=== PATIENT | male | born 1990 | race Caucasian/White ===

== ENCOUNTER 2024-02-02 17:51 | Emergency (ER) | payer OTHER, SELFPAY ==
[2024-02-02 18:31] VITALS: BP 134/89; PULSE 106; RESP 18; TEMP 37.3; O2SAT 95; BMI 39.9
--- NOTE | 2024-02-02 19:37 | ED_ITS ---
HPI - URI/Sore Throat General Chief Complaint: Upper Respiratory Symptoms Stated Complaint: Flu like symptoms Time Seen by Provider: 02/02/24 19:18 Source: patient Mode of arrival: ambulatory Limitations: no limitations History of Present Illness ED Provider: brian CEDEÑO Narrative: Patient's woke in the hospital complaining of running nose sore throat loss of taste sensation since yesterday with fever patient has been vaccinated against COVID no significant shortness of breath does have dry cough patient does have history of asthma Related Data Previous Rx's ?Medication ?Instructions ?Recorded benzonatate 200 mg capsule 200 mg PO TID PRN cough #30 caps 02/02/24 prednisone 20 mg tablet 40 mg (2 x 20 mg) PO DAILY #10 tabs 02/02/24 Allergies Allergy/AdvReac Type Severity Reaction Status Date / Time banana Allergy Itching Verified 02/02/24 18:33 [email or web address] Allergy Itching Verified 02/02/24 18:33 Review of Systems Review of Systems: Yes all other systems are reviewed and are negative [facility] Social History Social History Smoked in Last 30 Days: No Use of substances other than those prescribed or required for medical reasons: No Advance Directives: No Advance Directives Information Provided: No Physical Exam Vital Signs: Vital Signs: Last Vital Signs Temp 98.5 F 02/02/24 20:17 Pulse 102 H 02/02/24 20:17 Resp 20 02/02/24 20:17 BP 132/83 02/02/24 20:17 Pulse Ox 100 02/02/24 20:17 O2 Del Method Room Air 02/02/24 20:17 BMI result Body Mass Index 39.9 Appearance: Alert. Oriented X3. No acute distress. ENT: Pharynx normal. Oral Mucosa moist Neck: Normal inspection. Neck supple. CVS: Normal heart rate and rhythm. Pulses normal. Respiratory: No respiratory distress. Equal air entry bilateral, no wheezing/rales/rhonchi Skin: Skin warm and dry. Normal skin color. Normal skin turgor. Extremities: No lower extremity edema. Neuro: Oriented X 3. Medical Decision Making Lab Data MDM Lab Attestation statement: I reviewed the patient's lab results. Labs: Lab Results 02/02/24 Range/Units 18:58 Influenza Type A (PCR) NEGATIVE (Negative) Influenza Type B (PCR) NEGATIVE (Negative) RSV RNA Qual (PCR) NEGATIVE (Negative) SARS-CoV-2 RNA (RT-PCR) POSITIVE A (Negative) Discharge Plan Discharge Clinical Impression: COVID-19 Patient Disposition: Home, Self-Care Instructions: COVID-19 (Coronavirus Disease 2019) (ED) Additional Instructions: Social distancing as advised Cough drops as advised Take prednisone for your asthma and continue to use your inhaler Prescriptions: New benzonatate 200 mg capsule 200 mg PO TID PRN (Reason: cough) Qty: 30 0RF prednisone 20 mg tablet 40 mg PO DAILY Qty: 10 0RF Stand Alone Forms: Work/School Release Interventions: ED Discharge Assessment Last Done: 02/02/24 20:17 Discharge Date/Time: 02/02/24 20:17 Print Language: Kazakh
[2024-02-02 19:44] LABS: Influenza A PCR NEGATIVE (Negative); Influenza B PCR NEGATIVE (Negative); Resp Syncy Virus RNA Qual PCR NEGATIVE (Negative); SARS COV2 PCR INHOUSE POSITIVE (Negative)
[2024-02-02 20:00] VITALS: BP 132/83; PULSE 99; RESP 18; TEMP 36.9; O2SAT 100
[2024-02-02 20:13] VITALS: O2SAT 100
--- NOTE | 2024-02-02 20:15 | PC.NURSE ---
pt a&o, no respiratory distress, reviewed discharge instructions with pt. pt verbalized understanding, upon discharge pt had a steady gait.
[2024-02-02 20:17] VITALS: BP 132/83; PULSE 102; RESP 20; TEMP 36.9; O2SAT 100
== END 2024-02-02 20:17 | disposition home or self-care (01) ==
PROVIDERS: Emergency Provider Internal Medicine; PCP Family Medicine
DX: U07.1 COVID-19 (principal)
CPT/HCPCS: 0241U; 99283; 99284

== ENCOUNTER 2024-09-20 12:14 | Emergency (ER) | payer SELFPAY ==
[2024-09-20 12:19] VITALS: BP 120/85; PULSE 74; RESP 16; TEMP 36.6; O2SAT 99; BMI 34.6
--- NOTE | 2024-09-20 13:22 | ED.BACK ---
HPI - Back Pain/Injury General Chief Complaint: Back Pain/Injury Stated Complaint: Back pain Time Seen by Provider: 09/20/24 12:42 Source: patient Mode of arrival: ambulatory Limitations: no limitations History of Present Illness ED Provider: TABBY CEDEÑO Narrative: 33 yo male with no sig PMH here with known L inguinal hernia he was working today and bent down then became stuck he started to have severe pain across back and into R buttock. He feels his hands are tingling. He told me he felt tingling in his rectum as well but no b/b incontinnence and no saddle anesthesia. No thinners, no IVDA. He reports feeling an ache this AM and taking advil around 615am. He notes he cannot move due to pain and he cannot get comfortable. MD elicited complaint: back pain and back injury Pertinent past history: prior back pain Onset (ago): hour(s) (6am today but just triggered at work) Timing: progressively worsening Severity: severe Similar Symptoms Previously: No Quality: stabbing, spasming and throbbing Location: lumbar spine Radiation: buttocks and right upper leg Exacerbating factors: movement Relieving factors: immobilization Context: bending Associated symptoms: denies other symptoms Work related injury: Yes Related Data Previous Rx's ?Medication ?Instructions ?Recorded benzonatate 200 mg capsule 200 mg PO TID PRN cough #30 caps 02/02/24 prednisone 20 mg tablet 40 mg (2 x 20 mg) PO DAILY #10 tabs 02/02/24 diazepam 5 mg tablet (Valium) 5 mg PO TID PRN muscle spasm #10 09/20/24 tabs hydrocodone 5 mg-acetaminophen 325 1 tab PO Q6H PRN pain #10 tabs 09/20/24 mg tablet ketorolac 10 mg tablet 10 mg PO TID PRN pain 5 days #15 09/20/24 tabs Allergies Allergy/AdvReac Type Severity Reaction Status Date / Time banana Allergy Itching Verified 09/20/24 12:21 [email or web address] Allergy Itching Verified 09/20/24 12:21 Review of Systems Review of Systems: Constitutional : No Weight loss, No Fever, No Chills, ENT/Mouth : No Hearing loss, No Ear Pain, No Nasal Congestion, No Sinus Pain, No Hoarseness, No sore throat, No Rhinorrhea, No Swallowing Difficulty Cardiovascular : No Chest Pain, No SOB Respiratory : No Cough, No Dyspnea Gastrointestinal : No Nausea, No Vomiting, No Diarrhea, No abdominal Pain, No Hematochezia, No Melena Genitourinary : No Dysuria, No Urinary Frequency, No Hematuria, No Urinary Incontinence, Musculoskeletal : positive back pain Skin : No Skin Lesions, No rash Neuro : No Weakness, No Numbness, No Paresthesias, no loss of bowel or bladder incontinence, no saddle anesthesia Yes all other systems are reviewed and are negative [facility] Past Medical History Attestation statement: The following information was validated with the patient. Source: old records reviewed Medical History COVID-19 Social History Social History (Updated 09/20/24 @ 13:46 by Ashley Andres DO) Patient Tobacco Use Status: Never used Tobacco Advance Directives: No Advance Directives Information Provided: Yes Physical Exam Vital Signs: Vital Signs: Last Vital Signs Temp 97.8 F 09/20/24 14:16 Pulse 84 09/20/24 16:06 Resp 18 09/20/24 16:06 BP 116/67 09/20/24 16:06 Pulse Ox 95 09/20/24 16:06 O2 Del Method Room Air 09/20/24 16:06 BMI result Body Mass Index 34.6 Appearance: Alert. Oriented X3. No acute distress. Eyes: Pupils equal, round and reactive to light. ENT: Pharynx normal. Neck: Normal inspection. Neck supple. CVS: Normal heart rate and rhythm. Pulses normal. Respiratory: No respiratory distress. Breath sounds normal. Abdomen: Soft and nontender. Back: ttp along lower back, R buttock area Skin: Skin warm and dry. Normal skin color. Normal skin turgor. Extremities: No lower extremity edema. No calf ttp Neuro: Oriented X 3. No motor deficit. No sensory deficit. CN2-12 intact SILT inner thigh, normal rectal tone and sensation, DTR in patella and achilles bilateral 2+, silt in legs, pain with any movement can wiggle toes Course Course Course Narrative: rectal tone, NV intact, PVR only 4mL he has no signs of cauda equina Medications Administered Discontinued Medications Generic Name Dose Route Start Last Admin Trade Name Freq PRN Reason Stop Dose Admin Hydromorphone HCl 1 mg 09/20/24 15:43 09/20/24 15:55 Hydromorphone Hcl 1 Mg/Ml Syringe IVPUSH 09/20/24 15:44 1 mg ONCE ONE Administration Protocol Ketorolac Tromethamine 15 mg 09/20/24 13:05 09/20/24 13:32 Ketorolac Tromethamine 15 Mg/Ml Vial IVPUSH 09/20/24 13:06 15 mg ONCE ONE Administration Lorazepam 1 mg 09/20/24 13:05 09/20/24 13:30 Lorazepam 2 Mg/Ml Vial IVPUSH 09/20/24 13:06 1 mg STAT STA Administration Medical Decision Making Medical Decision Making MDM Narrative: 33 yo male with back pain but no incontinence or anesthesia on exam rectal tone and reflexes normal - will obtain PVR after urination. He will need IV ativan and toradol for pain. No falls to suggest fracture, no signs of cauda equina. No IVDA to suggest infection Differential Diagnosis Differential Diagnoses: The differential diagnosis associated with the presentation includes back strain, radiculopathy, spasm Admission/Observation Consideration of admission/observation: Escalation of care including admission/observation considered got up walked to the chair sitting upright he can be managed at home with medications and work connection follow up Lab Data MDM Lab Attestation statement: I reviewed the patient's lab results. wants STI treatment External Record Review External record reviewed: Outpatient record Tests considered The following testing was considered but not selected: lumbar xray but no trauma doubt fracture Prescription Management I considered prescription management with: Pain Medication, Antibiotic and Other Critical Care Time Critical Care Time Critical Care Time: Yes Total Critical Care Time: 35 Attestation: IV back pain ,repeat IV pain medications - IV dilaudid, IV ativan with improvement in pain I attest to this time spent taking care of the patient Discharge Plan Discharge Clinical Impression: Muscle spasm of back, Possible exposure to STI Sciatica Qualifiers: Laterality: right Qualified Code(s): M54.31 - Sciatica, right side Patient Disposition: Home, Self-Care Instructions: Sexually Transmitted Diseases (ED), Sciatica (ED), Acute Low Back Pain (ED) Additional Instructions: results in portal over next 24 hours please rest and stay hydrated no lifting more than 10lbs for 2 weeks follow up with work connection prior to returning to work return for numbness, weakness, loss of control of bowel or bladder no drinking or driving with medications On doxycycline, do not take pills immediately before going to bed and swallow pills with plenty of water. Avoid direct sunlight, iron, antacids, and Pepto Bismol. Call your provider if you develop new ringing in your ears, new problems hearing, dizziness, difficulty swallowing, rash, abdominal discomfort, nausea, or diarrhea.? Prescriptions: New hydrocodone-acetaminophen 5-325 mg tablet 1 tab PO Q6H PRN (Reason: pain) Qty: 10 0RF Rx Instructions: partial fill okay; Partial Fill upon patient request. ketorolac 10 mg tablet 10 mg PO TID PRN (Reason: pain) 5 Days Qty: 15 0RF Rx Instructions: given IV toradol in department diazepam [Valium] 5 mg tablet 5 mg PO TID PRN (Reason: muscle spasm) Qty: 10 0RF Rx Instructions: partial fill is okay No Action benzonatate 200 mg capsule 200 mg PO TID PRN (Reason: cough) Qty: 30 0RF prednisone 20 mg tablet 40 mg PO DAILY Qty: 10 0RF Referrals: [facility] [Provider Group] Stand Alone Forms: Work/School Release Print Language: Citizen [place]
[2024-09-20] MEDS: LORazepam 2 MG/ML VIAL 1 MG IVPUSH (13:30)
[2024-09-20 14:16] VITALS: BP 106/57; PULSE 75; RESP 16; TEMP 36.6
[2024-09-20 16:06] VITALS: BP 116/67; PULSE 84; RESP 18; O2SAT 95
--- NOTE | 2024-09-20 16:28 | MHC.EDTECH ---
Pt got out of bed and ambulated to chair independently. After sitting in chair for a few minutes, pt then got out of chair and sat back into bed independently. Head of the bed is now up, call gordillo within reach, complaining of nausea at this time, RN aware.
[2024-09-20] MEDS: cefTRIAXone sodium 500 MG, Lidocaine HCl 1 % MPF 1 ML IM (16:48)
[2024-09-20 17:24] VITALS: BP 116/67; PULSE 84; RESP 18; TEMP 36.9; O2SAT 95
[2024-09-21 03:05] LABS: CT PCR Urine NOT DETECTED (Not Detect.); NG PCR Urine NOT DETECTED (Not Detect.)
== END 2024-09-20 17:33 | disposition home or self-care (01) ==
PROVIDERS: Emergency Provider Emergency Medicine
DX: M62.830 Muscle spasm of back (principal); M54.50 Low back pain, unspecified; Z20.2 Contact with and (suspected) exposure to infections with a predominantly sexual mode of transmission
CPT/HCPCS: 36415; 87491; 87591; 96372; 96374; 96375; 99285; 99291; J0696; J1171; J1885; J2003; J2060